=== PATIENT | female | born 1955 | race Caucasian/White ===

== ENCOUNTER 2020-01-06 15:30 | Observation (INO) | payer BC ==
[2020-01-06 15:43] VITALS: RESP 18
[2020-01-06] MEDS ORDERED: SODIUM CHLORIDE 0.9% 1,000 ML IV STA (16:04)
[2020-01-06] MEDS ORDERED: METOCLOPRAMIDE 5 MG/ML 2 ML VIAL IVP STA (16:04)
--- NOTE | 2020-01-06 16:26 | ED ---
Dizziness HPI - General Chief Complaint: Syncope Stated Complaint: Vomiting Time Seen by Provider: 01/06/20 15:35 Source: patient, EMS, RN notes reviewed Mode of arrival: EMS Limitations: no limitations - History of Present Illness Initial Comments: This is a 64 -year-old female who states she took 2 puffs of a marijuana cigarette about 1 hour prior to arrival when she started having severe dizziness with nausea and vomiting. She states she passed out several times. She is not believe that the marijuana was laced with anything as her friend had the same material and had no symptoms. Patient states prior to that she was fine she denies any current fevers chills he does have nausea in spite of the medication given by paramedics. No diarrhea no other symptoms at this time no chest pain no palpitations. No other modifying factors MD Complaint: dizziness, lightheadedness, near syncope - Related Data Allergies Allergy/AdvReac Type Severity Reaction Status Date / Time No Known Allergies Allergy Verified 01/06/20 15:43 Review of Systems ROS Statement: Those systems with pertinent positive or pertinent negative responses have been documented in the HPI. ROS Other: All systems not noted in ROS Statement are negative. Past Medical History Past Medical History: Hyperlipidemia History of Any Multi-Drug Resistant Organisms: None Reported Past Surgical History: Section Past Psychological History: No Psychological Hx Reported Smoking Status: Current some day smoker Past Alcohol Use History: Occasional Past Drug Use History: Marijuana General Exam - General Exam Comments Initial Comments: This is a well-developed well-nourished awake alert oriented 3 female Limitations: no limitations General appearance: alert, anxious Head exam: Present: atraumatic, normocephalic, normal inspection Eye exam: Present: normal appearance, PERRL, EOMI. Absent: scleral icterus, conjunctival injection, periorbital swelling ENT exam: Present: mucous membranes dry Neck exam: Present: normal inspection. Absent: tenderness, meningismus, lymphadenopathy Respiratory exam: Present: normal lung sounds bilaterally. Absent: respiratory distress, wheezes, rales, rhonchi, stridor Cardiovascular Exam: Present: regular rate, normal rhythm, normal heart sounds. Absent: systolic murmur, diastolic murmur, rubs, gallop, clicks GI/Abdominal exam: Present: soft, normal bowel sounds. Absent: distended, tenderness, guarding, rebound, rigid Extremities exam: Present: normal inspection, full ROM, normal capillary refill. Absent: tenderness, pedal edema, joint swelling, calf tenderness Back exam: Present: normal inspection Neurological exam: Present: alert, oriented X3, CN II-XII intact Psychiatric exam: Present: normal affect, normal mood Skin exam: Present: warm, dry, intact, normal color. Absent: rash Course Vital Signs 01/06/20 01/06/20 01/06/20 15:37 16:15 16:45 Temperature 97.4 F L Pulse Rate 63 71 78 Respiratory 18 18 18 Rate Blood Pressure 107/72 109/70 103/61 O2 Sat by Pulse 94 L 93 L 93 L Oximetry - Reevaluation(s) Reevaluation #1: 01/06/20 16:26 patient was noted to have dark colored emesis in a bag which will be Gastrocculted Reevaluation #2: 01/06/20 18:03 Patient does states she feels somewhat better she did however state that her fr iend told her she had seizure-like activity prior to all the episodes after smoking the marijuana. Patient will get a CAT scan of the brain due to this is likely secondary to the episode however. Medical Decision Making - Medical Decision Making I did discuss findings with patient and her was present. Patient be admitted I did discuss case also with Dr. Baldwin. GI will be consulted initially. - Lab Data Result diagrams: 01/06/20 16:02 01/06/20 16:02 Lab Results 01/06/20 01/06/20 01/06/20 Range/Units 16:02 16:02 16:02 WBC 8.3 (3.8-10.6) k/uL RBC 5.00 (3.80-5.40) m/uL Hgb 14.7 (11.4-16.0) gm/dL Hct 44.7 (34.0-46.0) % MCV 89.5 (80.0-100.0) fL MCH 29.5 (25.0-35.0) pg MCHC 32.9 (31.0-37.0) g/dL RDW 13.7 (11.5-15.5) % Plt Count 415 (150-450) k/uL Neutrophils % 52 % Lymphocytes % 36 % Monocytes % 5 % Eosinophils % 3 % Basophils % 1 % Neutrophils # 4.4 (1.3-7.7) k/uL Lymphocytes # 3.0 (1.0-4.8) k/uL Monocytes # 0.4 (0-1.0) k/uL Eosinophils # 0.3 (0-0.7) k/uL Basophils # 0.1 (0-0.2) k/uL PT 9.5 (9.0-12.0) sec INR 0.9 (<1.2) APTT 19.6 L (22.0-30.0) sec D-Dimer 0.60 H (<0.60) mg/L FEU Sodium 140 (137-145) mmol/L Potassium 4.2 (3.5-5.1) mmol/L Chloride 106 (98-107) mmol/L Carbon Dioxide 21 L (22-30) mmol/L Anion Gap 13 mmol/L BUN 15 (7-17) mg/dL Creatinine 0.94 (0.52-1.04) mg/dL Est GFR (CKD-EPI)AfAm 74 (>60 ml/min/1.73 sqM) Est GFR (CKD-EPI)NonAf 64 (>60 ml/min/1.73 sqM) Glucose 143 H (74-99) mg/dL Calcium 9.9 (8.4-10.2) mg/dL Magnesium 2.2 (1.6-2.3) mg/dL Total Bilirubin 0.5 (0.2-1.3) mg/dL AST 39 H (14-36) U/L ALT 25 (4-34) U/L Alkaline Phosphatase 76 (38-126) U/L Creatine Kinase 98 (30-135) U/L Troponin I (0.000-0.034) ng/mL Total Protein 8.4 H (6.3-8.2) g/dL Albumin 5.1 H (3.5-5.0) g/dL Gastric Occult Blood (Negative) 01/06/20 01/06/20 Range/Units 16:02 16:07 WBC (3.8-10.6) k/uL RBC (3.80-5.40) m/uL Hgb (11.4-16.0) gm/dL Hct (34.0-46.0) % MCV (80.0-100.0) fL MCH (25.0-35.0) pg MCHC (31.0-37.0) g/dL RDW (11.5-15.5) % Plt Count (150-450) k/uL Neutrophils % % Lymphocytes % % Monocytes % % Eosinophils % % Basophils % % Neutrophils # (1.3-7.7) k/uL Lymphocytes # (1.0-4.8) k/uL Monocytes # (0-1.0) k/uL Eosinophils # (0-0.7) k/uL Basophils # (0-0.2) k/uL PT (9.0-12.0) sec INR (<1.2) APTT (22.0-30.0) sec D-Dimer (<0.60) mg/L FEU Sodium (137-145) mmol/L Potassium (3.5-5.1) mmol/L Chloride (98-107) mmol/L Carbon Dioxide (22-30) mmol/L Anion Gap mmol/L BUN (7-17) mg/dL Creatinine (0.52-1.04) mg/dL Est GFR (CKD-EPI)AfAm (>60 ml/min/1.73 sqM) Est GFR (CKD-EPI)NonAf (>60 ml/min/1.73 sqM) Glucose (74-99) mg/dL Calcium (8.4-10.2) mg/dL Magnesium (1.6-2.3) mg/dL Total Bilirubin (0.2-1.3) mg/dL AST (14-36) U/L ALT (4-34) U/L Alkaline Phosphatase (38-126) U/L Creatine Kinase (30-135) U/L Troponin I <0.012 (0.000-0.034) ng/mL Total Protein (6.3-8.2) g/dL Albumin (3.5-5.0) g/dL Gastric Occult Blood Positive (Negative) - EKG Data -: EKG Interpreted by Me EKG shows normal: sinus rhythm (Abdomen sinus rhythm of 70 TX interval 156 QRS duration 86 QT since QTC 452/48 left exodeviation nonspecific anterior configuration) - Radiology Data Radiology results: report reviewed (I did review the imaging and report no acute findings.), image reviewed Disposition Clinical Impression: Syncope and collapse, Upper GI bleed, Seizure Disposition: ADMITTED IP TO THIS [facility] Condition: Fair Referrals: None,Stated [Primary Care Provider] - 1-2 days
[2020-01-06 16:28] LABS: Basophils # (A) 0.1 k/uL (0-0.2); Basophils % (A) 1 %; Eosinophils # (A) 0.3 k/uL (0-0.7); Eosinophils % (A) 3 %; HCT 44.7 % (34.0-46.0); HGB 14.7 gm/dL (11.4-16.0); Lymphocytes % (A) 36 %; MCH 29.5 pg (25.0-35.0); MCHC 32.9 g/dL (31.0-37.0); MCV 89.5 fL (80.0-100.0); Mean Platelet Volume 7.3; Monocytes # (A) 0.4 k/uL (0-1.0); Monocytes % (A) 5 %; Neutrophils # (A) 4.4 k/uL (1.3-7.7); Neutrophils % (A) 52 %; Platelet Count 415 k/uL (150-450); RDW 13.7 % (11.5-15.5); WBC 8.3 k/uL (3.8-10.6)
[2020-01-06 16:41] LABS: Albumin 5.1 g/dL (3.5-5.0); Calcium 9.9 mg/dL (8.4-10.2); Magnesium 2.2 mg/dL (1.6-2.3); Potassium 4.2 mmol/L (3.5-5.1); Total Bilirubin 0.5 mg/dL (0.2-1.3); Total Protein 8.4 g/dL (6.3-8.2)
--- NOTE | 2020-01-06 16:46 | XR ---
EXAMINATION TYPE: XR chest 2V DATE OF EXAM: 01/06/2020 COMPARISON: NONE HISTORY: Dizziness TECHNIQUE: 2 views FINDINGS: There is some mild elevation of the right diaphragm. There is no heart failure. Lungs are c lear of consolidation. Bony thorax is intact. IMPRESSION: Mild atelectasis at the right lung base. Normal heart.
[2020-01-06 16:52] LABS: INR 0.9 (<1.2); Prothrombin Time 9.5 sec (9.0-12.0)
[2020-01-06 17:15] LABS: Partial Thromboplastin Time 19.6 sec (22.0-30.0)
[2020-01-06 17:17] LABS: D-Dimer 0.6 mg/L FEU (<0.60)
[2020-01-06] MEDS ORDERED: NALOXONE 0.4 MG/ML 1 ML VIAL IV PRN (18:05)
--- NOTE | 2020-01-06 19:01 | CT ---
EXAMINATION TYPE: CT brain wo con DATE OF EXAM: 01/06/2020 COMPARISON: None HISTORY: 1119.4 CT DLP: Syncope, seizure mGycm Automated exposure control for dose reduction was used. There is mild cerebral atrophy. There is no mass effect nor midline shift. There is no sign of intrac ranial hemorrhage. The calvarium is intact. There is no evidence of cerebral edema. Skull base is int act. IMPRESSION: Mild cerebral atrophy mainly in the frontal lobes. No acute intracranial abnormality.
[2020-01-06] MEDS: PANTOPRAZOLE 40 MG/10 ML VIAL IV SCH (20:04)
[2020-01-06] MEDS: SODIUM CHLORIDE 0.9% 1,000 ML IV SCH (21:44)
[2020-01-07] MEDS: ACETAMINOPHEN TAB 325 MG TAB PO PRN ×2 (03:17→08:55)
[2020-01-07] MEDS: SODIUM CHLORIDE 0.9% 1,000 ML IV SCH (04:00)
[2020-01-07] MEDS: PANTOPRAZOLE 40 MG/10 ML VIAL IV SCH (08:56)
[2020-01-07 09:08] VITALS: TEMP 98.4
[2020-01-07 09:25] LABS: Appearance,Urine Clear (Clear); Bacteria,Urine Occasional /hpf; Bilirubin,Urine Negative (Negative); Blood,Urine Negative (Negative); Color,Urine Light Yellow; Glucose,Urine (UA) Negative (Negative); Ketones,Urine Negative (Negative); Leukocyte Esterase,Urine Moderate (Negative); Mucus,Urine Rare /hpf; Nitrite,Urine Negative (Negative); Protein,Urine Negative (Negative); Squamous Epithelial Cell,Urine <1 /hpf (0-4); Urobilinogen,Urine <2.0 mg/dL (<2.0); WBC,Urine 13 /hpf (0-5)
[2020-01-07 09:35] LABS: Amphetamine Screen,Urine Not Detected (NotDetected); Barbiturate Screen,Urine Not Detected (NotDetected); Benzodiazepines Screen,Urine Not Detected (NotDetected); Cocaine Screen,Urine Not Detected (NotDetected); Methadone Screen, Urine Not Detected (NotDetected); Opiate Screen,Urine Not Detected (NotDetected); Oxycodone Screen, Urine Not Detected (NotDetected); Phencyclidine Screen,Urine Not Detected (NotDetected); Tricyclic Antidepressant,Urine Not Detected (NotDetected); Urn Cannabinoid Scrn Detected (NotDetected)
[2020-01-07] MEDS ORDERED: ONDANSETRON 4 MG/2 ML VIAL IVP PRN (11:30)
[2020-01-07] MEDS ORDERED: ESCITALOPRAM 10 MG TAB PO SCH (11:30)
--- NOTE | 2020-01-07 13:36 | P.HPIM ---
History of Present Illness 64-year-old female was admitted for possible evaluation of seizures. Patient is a pleasant 64-year-old female came in after she lost consciousness followed by possible seizure-like activity without loss of bowel or bladder incontinence or tongue biting. Patient had couple similar episodes she was being transported via EMS. Patient did use marijuana prior to this episode and was also drinking alcohol. Patient had a episode of coffee-ground emesis as well as today. Patient did have a syncope. Her syncope left to seizure patient has a seizure induced presyncope which is again secondary to intravascular depletion because of above-mentioned reasons. Patient was having nausea vomiting. Review of Systems REVIEW OF SYSTEMS: CONSTITUTIONAL: No fever, no malaise, no fatigue. HEENT: No recent visual problems or hearing problems. Denied any sore throat. CARDIOVASCULAR: No chest pain, orthopnea, PND, no palpitations. PULMONARY: No shortness of breath, no cough, no hemoptysis. GASTROINTESTINAL: No diarrhea, no nausea, no vomiting, no abdominal pain. NEUROLOGICAL: As mentioned in HPI no weakness or numbness HEMATOLOGICAL: Denies any bleeding or petechiae. GENITOURINARY: Denies any burning micturition, frequency, or urgency. MUSCULOSKELETAL/RHEUMATOLOGICAL: Denies any joint pain, swelling, or any muscle pain. ENDOCRINE: Denies any polyuria or polydipsia. The rest of the 14-point review of systems is negative. Past Medical History Past Medical History: Hyperlipidemia History of Any Multi-Drug Resistant Organisms: None Reported Past Surgical History: Section Past Anesthesia/Blood Transfusion Reactions: No Reported Reaction Past Psychological History: No Psychological Hx Reported Smoking Status: Current some day smoker Past Alcohol Use History: Occasional Past Drug Use History: Marijuana Medications and Allergies Home Medications Medication Instructions Recorded Confirmed Type Escitalopram Oxalate [Lexapro] 10 mg PO DAILY 01/06/20 01/06/20 History Simvastatin [Zocor] 20 mg PO DAILY 01/06/20 01/06/20 History Omeprazole [PriLOSEC] 40 mg PO AC-BID #30 capsule. 01/07/20 Rx Allergies Allergy/AdvReac Type Severity Reaction Status Date / Time No Known Allergies Allergy Verified 01/06/20 18:48 Physical Exam Vitals: Vital Signs Temp Pulse Pulse Resp BP BP Pulse Ox 01/07/20 08:45 98.4 F 81 18 121/56 92 L 01/07/20 03:33 79 18 117/64 94 L 01/07/20 00:00 75 18 118/72 94 L 01/06/20 20:00 98.3 F 90 18 121/59 95 01/06/20 19:00 97.9 F 87 18 109/70 01/06/20 18:00 87 18 114/71 99 01/06/20 16:45 78 18 103/61 93 L 01/06/20 16:15 71 18 109/70 93 L 01/06/20 15:37 97.4 F L 63 18 107/72 94 L Intake and Output 01/06/20 01/07/20 01/07/20 22:59 06:59 14:59 Output Total 300 Balance -300 Output: Urine 300 Other: Voiding Method Toilet Toilet Weight 80.739 kg 81.3 kg PHYSICAL EXAMINATION: GENERAL: The patient is alert and oriented x3, not in any acute distress. Well developed, well nourished. HEENT: Pupils are round and equally reacting to light. EOMI. No scleral icterus. No conjunctival pallor. Normocephalic, atraumatic. No pharyngeal erythema. No thyromegaly. CARDIOVASCULAR: S1 and S2 present. No murmurs, rubs, or gallops. PULMONARY: Chest is clear to auscultation, no wheezing or crackles. ABDOMEN: Soft, nontender, nondistended, normoactive bowel sounds. No palpable organomegaly. MUSCULOSKELETAL: No joint swelling or deformity. EXTREMITIES: No cyanosis, clubbing, or pedal edema. NEUROLOGICAL: Gross neurological examination did not reveal any focal deficits. SKIN: No rashes. Results CBC & Chem 7: 01/06/20 16:02 01/06/20 16:02 Labs: Abnormal Lab Results - Last 24 Hours (Table) 01/06/20 01/06/20 01/07/20 Range/Units 16:02 16:02 08:46 APTT 19.6 L (22.0-30.0) sec D-Dimer 0.60 H (<0.60) mg/L FEU Carbon Dioxide 21 L (22-30) mmol/L Glucose 143 H (74-99) mg/dL AST 39 H (14-36) U/L Total Protein 8.4 H (6.3-8.2) g/dL Albumin 5.1 H (3.5-5.0) g/dL Ur Leukocyte Esterase Moderate H (Negative) Urine WBC 13 H (0-5) /hpf Urine Bacteria Occasional H (None) /hpf Urine Mucus Rare H (None) /hpf U Marijuana (THC) Screen (NotDetected) 01/07/20 Range/Units 08:46 APTT (22.0-30.0) sec D-Dimer (<0.60) mg/L FEU Carbon Dioxide (22-30) mmol/L Glucose (74-99) mg/dL AST (14-36) U/L Total Protein (6.3-8.2) g/dL Albumin (3.5-5.0) g/dL Ur Leukocyte Esterase (Negative) Urine WBC (0-5) /hpf Urine Bacteria (None) /hpf Urine Mucus (None) /hpf U Marijuana (THC) Screen Detected H (NotDetected) Thrombosis Risk Factor Assmnt - Choose All That Apply Any of the Below Risk Factors Present?: No Each Risk Factor Represents 2 Points: Age 61-74 years Thrombosis Risk Factor Assessment Total Risk Factor Score: 2 Thrombosis Risk Factor Assessment Level: Low Risk Assessment and Plan Plan: -Syncope: Patient had a seizure related to syncope and this isn't obese again secondary to intravascular depletion for which patient received IV fluids and patient also has coffee-ground emesis and mild upper GI bleed which resolved at this time and the patient was given IV Protonix and patient will be discharged on Protonix with the gastroneurology follow-up with patient. -Gastritis with mild upper GI bleed: Probably secondary to alcohol use and the marrow and uses today patient's proton pump inhibitor dose will be changed to twice a day and will be discharged today. -Hyperlipidemia -Depression
--- NOTE | 2020-01-07 13:37 | P.DS ---
Providers Date of admission: 01/06/20 18:09 Attending physician: Crispin Baldwin MD Consults: 01/07/20 10:03 Consult Physician Urgent Consulting Provider: Marcelo Rodriguez Consult Reason/Comments: new onset seizures Do you want consulting provider notified?: Yes Primary care physician: Stated None Hospital Course: As mentioned in HPI Patient Condition at Discharge: Fair Plan - Discharge Summary Discharge Rx Participant: No New Discharge Prescriptions: New Omeprazole [PriLOSEC] 40 mg PO AC-BID #30 capsule. Continue Simvastatin [Zocor] 20 mg PO DAILY Escitalopram Oxalate [Lexapro] 10 mg PO DAILY Discontinued Omeprazole [PriLOSEC] 40 mg PO DAILY PRN PRN Reason: Gi Upset Discharge Medication List Escitalopram Oxalate [Lexapro] 10 mg PO DAILY 01/06/20 [History] Simvastatin [Zocor] 20 mg PO DAILY 01/06/20 [History] Omeprazole [PriLOSEC] 40 mg PO AC-BID #30 capsule. 01/07/20 [Rx] Follow up Appointment(s)/Referral(s): Veronica Parr MD [STAFF PHYSICIAN] - 1 Week Discharge Disposition: HOME SELF-CARE
[2020-01-07 13:45] VITALS: BP 106/64; PULSE 68
--- NOTE | 2020-01-07 16:13 | P.CNNES ---
History of Present Illness Consult date: 01/07/20 Requesting physician: Sherry Hunt Reason for Consult: New onset seizures History of Present Illness: Patient is a 64-year-old female, brought to the hospital by ambulance yesterday at 3:30 PM for syncope versus seizure. Patient states that she was visiting her friend, got outside in the pool, sat down, took some sips of alcoholic drink (punch). She also smoked 2 puffs of marijuana cigarette and right after she b lacked out. She started vomiting and then she had seizure-like activity. There was no tongue bite or urinary incontinence. Patient started throwing up coffee- colored material. As per EMS flow sheet, when they arrive patient was sitting in the pool side vomiting coffee-ground emesis. Patient was alert and oriented 4, complaining of weakness. Bystanders mentioned patient was drinking alcohol and smoking a joint when she appeared to have seizure and then started vomiting. Patient continued to vomit during transport to the hospital. Her blood pressure was 125/76 pulse is 73, respiration 18 and saturation 96% as per EMS. Patient underwent CT head showed mild cerebral atrophy mainly in the frontal lobes. No acute intracranial abnormality. Chest x-ray showed mild atelectasis at the right lung base. Normal heart. EKG shows normal sinus rhythm. Left axis deviation. CBC normal. D-dimer is mildly elevated 0.60. Basic metabolic panel normal. AST is mildly elevated 39, ALT 25. Troponins negative. UA shows moderate leukocyte esterase and 13 WBCs and occasional bacteria. Gastric occult blood positive. Urine drug screen is positive for marijuana. Blood alcohol level was not checked. Patient at present feels fine. Patient states that she never had any syncopal spell, seizures in the past. Patient states that she drinks alcohol occasionally. The last time she smoked marijuana was in her 30s year of age. Patient denies any focal symptoms. Review of Systems As mentioned above in HPI. All other 14 point a few systems reviewed and unremarkable. Past Medical History Past Medical History: Hyperlipidemia History of Any Multi-Drug Resistant Organisms: None Reported Past Surgical History: Section Past Anesthesia/Blood Transfusion Reactions: No Reported Reaction Past Psychological History: No Psychological Hx Reported Smoking Status: Current some day smoker Past Alcohol Use History: Occasional Past Drug Use History: Marijuana Medications and Allergies Home Medications Medication Instructions Recorded Confirmed Type Escitalopram Oxalate [Lexapro] 10 mg PO DAILY 01/06/20 01/06/20 History Simvastatin [Zocor] 20 mg PO DAILY 01/06/20 01/06/20 History Omeprazole [PriLOSEC] 40 mg PO AC-BID #30 capsule. 01/07/20 Rx Allergies Allergy/AdvReac Type Severity Reaction Status Date / Time No Known Allergies Allergy Verified 01/06/20 18:48 Physical Examination - Vital Signs Vital Signs: Vital Signs Temp Pulse Pulse Resp BP BP Pulse Ox 01/07/20 08:45 98.4 F 81 18 121/56 92 L 01/07/20 03:33 79 18 117/64 94 L 01/07/20 00:00 75 18 118/72 94 L 01/06/20 20:00 98.3 F 90 18 121/59 95 01/06/20 19:00 97.9 F 87 18 109/70 01/06/20 18:00 87 18 114/71 99 01/06/20 16:45 78 18 103/61 93 L 01/06/20 16:15 71 18 109/70 93 L 01/06/20 15:37 97.4 F L 63 18 107/72 94 L Intake and Output 01/06/20 01/07/20 01/07/20 22:59 06:59 14:59 Output Total 300 Balance -300 Output: Urine 300 Other: Voiding Method Toilet Toilet Weight 80.739 kg 81.3 kg On examination patient is a late middle aged female, appears younger than her stated age. Patient is alert and awake fully oriented. Speech and language functions are normal. Attention and concentration fund of knowledge is adequate. On cranial nerve examination pupils are round and reactive to light, visual funk are full on confrontation, extraocular muscles are intact with no nystagmus. Face is symmetric, tongue protrudes the midline. Palatal elevation and sensation normal. Hearing and shoulder shrug normal. On muscle strength testing there is no pronator drift and the strength is normal in arms and legs distally and proximally. Reflexes are symmetric, 2+ and plantars downgoing. No clonus. Sensory touch is equal. No ataxia for [id number] or naid-[id number] testing. Tone and bulk of muscles normal. There is no carotid bruit or murmur, peripheral pulses are present. Chest is clear, abdomen soft nontender. No peripheral edema. Results - Laboratory Findings CBC and BMP: 01/06/20 16:02 01/06/20 16:02 Abnormal Lab Findings: Abnormal Labs 01/06/20 01/06/20 01/07/20 16:02 16:02 08:46 APTT 19.6 L D-Dimer 0.60 H Carbon Dioxide 21 L Glucose 143 H AST 39 H Total Protein 8.4 H Albumin 5.1 H Ur Leukocyte Esterase Moderate H Urine WBC 13 H Urine Bacteria Occasional H Urine Mucus Rare H U Marijuana (THC) Screen 01/07/20 08:46 APTT D-Dimer Carbon Dioxide Glucose AST Total Protein Albumin Ur Leukocyte Esterase Urine WBC Urine Bacteria Urine Mucus U Marijuana (THC) Screen Detected H Assessment and Plan Assessment: * Convulsive syncope, likely provoked due to drinking alcoholic beverage, and smoking marijuana. * Coffee-ground emesis may have contributed to the convulsive syncope. Plan: * Patient had a provoked convulsive syncope. * Patient recommended to abstain from use of marijuana and alcohol. * No further neurological workup indicated. * Neurologically clear for discharge. * If patient has recurrent spells, then may need further workup.
[2020-01-08] MEDS ORDERED: ATORVASTATIN 10 MG TAB PO SCH (09:00)
--- NOTE | 2020-01-08 09:50 | ECHOF ---
Referral Reason: MEASUREMENTS -------- HEIGHT: 172.7 cm WEIGHT: 81.2 kg BP: RVIDd: 2.9 cm (< 3.3) IVSd: 1.3 cm (0.6 - 1.1) LVIDd: 4.6 cm (3.9 - 5.3) LVPWd: 1.4 cm (0.6 - 1.1) IVSs: 1.8 cm LVIDs: 2.6 cm LVPWs: 1.9 cm LAESV Index (A-L): 23.88 ml/m Ao Diam: 2.9 cm (2.0 - 3.7) AV Cusp: 2.3 cm (1.5 - 2.6) LA Diam: 3.3 cm (2.7 - 3.8) MV EXCURSION: 12.148 mm (> 18.000) MV EF SLOPE: 86 mm/s (70 - 150) EPSS: 1.1 cm MV E Stiven: 0.67 m/s MV DecT: 167 ms MV A Stiven: 0.43 m/s MV E/A Ratio: 1.55 RAP: 5.00 mmHg RVSP: 43.29 mmHg FINDINGS -------- This was a technically good study. The left ventricular size is normal. There is moderate concentric left ventricular hypertrophy. O verall left ventricular systolic function is normal with, an EF between 55 - 60 %. The diastolic fi lling pattern is normal for the age of the patient 8.27. The right ventricle is normal in size. The left atrial size is normal. Normal LA size by volume 22+/-6 ml/m2. The right atrial size is normal. Interatrial and interventricular septum intact. The aortic valve is trileaflet and appears structurally normal. The mitral valve is normal. Mild mitral regurgitation is present. The tricuspid valve appears structurally normal. Mild tricuspid regurgitation present. There is m ild pulmonary hypertension. The right ventricular systolic pressure, as measured by Doppler, is 43. 29mmHg. There is no pulmonic regurgitation present. The aortic root size is normal. Normal inferior vena cava with normal inspiratory collapse consistent with estimated right atrial pre ssure of 5 mmHg. There is no pericardial effusion. CONCLUSIONS -------- 1. The left ventricular size is normal. 2. There is moderate concentric left ventricular hypertrophy. 3. Overall left ventricular systolic function is normal with, an EF between 55 - 60 %. 4. The diastolic filling pattern is normal for the age of the patient 8.27 5. Mild mitral regurgitation is present. 6. Mild tricuspid regurgitation present. 7. There is mild pulmonary hypertension. 8. The right ventricular systolic pressure, as measured by Doppler, is 43.29mmHg. POWER [employer]OVEL MECHANIC: Harika Pandya RDCS
== END 2020-01-07 16:06 | disposition home or self-care (01) ==
LOC: EC 15:30 → INTOOBSV 18:09 → 3SCARD 18:09 → UNDODISIN 01-07 16:06
PROVIDERS: ADMIT Internal Medicine; ATTEND Internal Medicine
DX: R56.9 Unspecified convulsions (principal); K29.71 Gastritis, unspecified, with bleeding; J98.11 Atelectasis; E78.5 Hyperlipidemia, unspecified; F17.200 Nicotine dependence, unspecified, uncomplicated; F32.9 Major depressive disorder, single episode, unspecified; G31.9 Degenerative disease of nervous system, unspecified; Z98.890 Other specified postprocedural states; Z79.899 Other long term (current) drug therapy
CPT/HCPCS: 96376; 96375; 96361; 96374; 99285; 36415; 93005; 93306; 85379; 80053; 82550; 83735; 84484 ×2; 85025; 85610; 85730; 82271; 81001; 80306; 71046; 70450; G0378 ×2; J2765; C9113 ×2